=== PATIENT | male | born 1995 | race American Indian/Alaskan Native ===

== ENCOUNTER 2020-08-01 16:43 | Emergency (ER) | payer SELFPAY ==
[2020-08-01] MEDS ORDERED: HYDROcodone/ACETAMINOPHEN 5-325 MG TAB PO ONE (17:26)
[2020-08-01 18:13] LABS: Basophils # (Auto) 0.1 K/mm3 (0.0-0.1); Basophils % (Auto) 0.9 % (0.0-1.8); Eosinophils # (Auto) 0.1 K/mm3 (0.0-0.4); Eosinophils % (Auto) 0.8 % (0.0-4.3); Hematocrit 27.2 % (35.5-45.6); Hemoglobin 9.3 gm/dl (11.8-15.2); Lymphocytes # (Auto) 2.6 K/mm3 (1.2-5.4); Lymphocytes % (Auto) 15.9 % (13.4-35.0); Mean Corpuscular HGB Conc 34 % (32-34); Mean Corpuscular Volume 95 fl (84-94); Monocytes # (Auto) 2.2 K/mm3 (0.0-0.8); Monocytes % (Auto) 13.3 % (0.0-7.3); Platelet Count 426 K/mm3 (140-440); Red Blood Count 2.86 M/mm3 (3.65-5.03)
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
[2020-08-01 18:20] LABS: Red Cell Distribution Width 22.1 % (13.2-15.2)
[2020-08-01 18:28] LABS: Alanine Aminotransferase 37 units/L (7-56); Albumin 4.7 g/dL (3.9-5); Blood Urea Nitrogen 10 mg/dL (9-20); Calcium 9.3 mg/dL (8.4-10.2); Hemolysis Index 16
[2020-08-01] MEDS ORDERED: SODIUM CHLORIDE 0.9% 1000 ML 1,000 ML IV ONE (18:35)
[2020-08-01 18:38] LABS: BUN/Creatinine Ratio 17
--- NOTE | 2020-08-01 18:49 | Vascular Lab Report ---
DUPLEX DOPPLER LOWER EXTREMITY VEINS, RIGHT INDICATION / CLINICAL INFORMATION: right calf pain, hx of sickle cell. TECHNIQUE: Duplex doppler imaging was performed through the veins of the right lower extremity using venous comp ression and other maneuvers. COMPARISON: None available. FINDINGS: RIGHT COMMON FEMORAL VEIN: Negative. RIGHT FEMORAL VEIN: Negative. RIGHT POPLITEAL VEIN: Negative. RIGHT CALF VEINS: Negative. ADDITIONAL FINDINGS: None. IMPRESSION: 1. No sonographic evidence for DVT in the right lower extremity. Signer Name: Macario Jeffries MD FACQuinton Signed: 08/01/2020 6:45 PM Workstation Name: [id number]
[2020-08-01] MEDS ORDERED: HYDROmorphone 1 MG/1 ML INJ IV ONE ×2 (19:36→21:22)
[2020-08-01 20:37] VITALS: BP 107/78
== END 2020-08-01 22:10 | disposition home or self-care (01) ==
LOC: ED 16:43
DX: M79.661 Pain in right lower leg (principal); D57.80 Other sickle-cell disorders without crisis
CPT/HCPCS: 36415; 80053; 85025; 85045; 93971; 96361; 96374; 96376; 99284; J1170; J7030